=== PATIENT | female | born 2000 | race Caucasian/White ===

== ENCOUNTER 2025-04-05 21:37 | Emergency (ER) | payer MEDICAID, SELFPAY ==
[2025-04-05 21:38] VITALS: BMI 27.4
--- NOTE | 2025-04-05 21:49 | EDNOTE_ITS ---
ED Abdominal Pain RME/HPI General Chief Complaint: Abdominal Pain Stated complaint: LOWER ABD PAIN Time seen by provider: 04/05/25 22:09 Arrival date/time: 04/05/25 21:37 RME / HPI RME / HPI narrative: This section includes all my notes and documentations, including HPI, PE, and ED course. Miguel Russell MD HPI: 24yo female presents to the ED for a chief complaint of pelvic pain. Patient states she was using the restroom when she stated feeling hot and nauseous and felt faint like she was going to pass out. Severe pelvic pain started at this point. Had associated vomiting. No other complaints reported. ROS: All negative except as documented in HPI. Physical Exam: General: Alert and oriented. No acute distress when remaining still. Eyes: Conjunctivae and lids clear. ENT: No nasal congestion. Neck: Supple. Heart: RRR. Lungs: No respiratory distress. Good air movement. No rhonchi, wheezing, rales. Abdomen: Soft. Equivocal pelvic tenderness. Normal bowel sounds. No distension. No rebound or guarding. Back: No CVA tenderness. Skin: Warm and dry. Neuro: Alert and oriented X 3. I reviewed all diagnostic test results. My review of the US transvaginal report is: Right ovary 4.3 cm arterial flow 18 mm cyst. Left ovary 2.9 cm arterial flow small follicles. Mild fluid in the cul-de-sac. Blood and urine tests unremarkable. At this point, diagnoses include ovarian cyst rupture. Treatment here included Tylenol with Codeine, Ibuprofen, and Zofran. Significant improvement. Recommended more outpatient workup. Based on my best medical judgment, made decision no further evaluation or treatment indicated at this time. Patient understands and agrees to the discharge instructions customized and printed, see below. Discharge instructions from Dr. Russell: -- After extensive evaluation, there is no emergency such as appendicitis needing urgent surgery. -- Your sudden severe pain is most likely from an ovarian cyst that ruptured. -- In young females, it is normal to have ovarian cysts (sacs of fluid) that come and go depending on the menstruation. If a cyst ruptures, it can cause severe pain until your body reabsorbs the fluid. Large cyst can cause significant pain as well. -- Apply ice or heat if helpful. Tylenol codeine for severe pain. -- See a private doctor on 04/07/2025. Ask to review all test results and official radiology reports, to make sure you receive all necessary follow-ups and monitoring. Ask for a referral to see a it help desk associate to make sure there is no other serious underlying conditions. -- Seek immediate medical care with worsening, fever, or with any concerns. Miguel Russell MD Related Data Home Medications ?Medication ?Instructions ?Recorded ?Confirmed famotidine 40 mg tablet (Pepcid) 40 mg PO QDAY PRN Ind igestion 07/04/22 07/08/22 clindamycin HCl 300 mg capsule 300 mg PO Q6H 07/08/22 07/08/22 Previous Rx's ?Medication ?Instructions ?Recorded acetaminophen 300 mg-codeine 30 mg 2 tab PO Q8H PRN pa in #20 tabs 04/05/25 tablet ondansetron 4 mg disintegrating 4 mg PO TID PRN nausea and 04/05/25 tablet vomiting 30 days #10 tabs Allergies Allergy/AdvReac Type Severity Reaction Status Date / Time No Known Allergies Allergy Verified 04/05/25 21:38 Review of Systems Review of Systems Systems Reviewed: All systems reviewed, normal except as documented Past Medical History Past Medical History NEUROLOGIC: Negative Neurological Disorders CARDIAC: Positive Cardiac Disorders and Hypertension; Negative Congestive Heart Failure RESPIRATORY: Positive Asthma ( A CHILD); Negative Chronic Obstructive Pulmonary Disease (COPD) GASTROINTESTINAL: Negative Gastrointestinal Disorders, Hepatitis or Colorectal Cancer GENITOURINARY: Negative Genitourinary Disorders, Renal Disease or Prostate Cancer REPRODUCTIVE: Negative Breast Cancer or Testicular Cancer MUSCULOSKELETAL: Negative Musculoskeletal Disorders or Bone Cancer ENDOCRINE: Positive Endocrine Disorders; Negative Diabetes Mellitus Type 1 or Diabetes Mellitus Type 2 HEMATOLOGIC: Positive Blood Disorders and Anemia PSYCHO/SOCIAL: Negative Recreational Drug Use, Depression, Anxiety or Depression OTHER HISTORY: Negative Hospitalization, Autoimmune Disease, Down Syndrome, Developmental Delay, Shingles, Falls, Blood Transfusions, Blood Transfusion Reaction, Anesthesia Reactions, Organ Transplant, Chemotherapy, Radiation Therapy, Hyperbaric Therapy, MRSA, VRSA, Vancomycin-Resistant Enterococci, Human Immunodeficiency Virus (HIV), Chicken Pox, Measles, Mumps, Rubella (English Measles), Pertussis, Clostridium Difficile, Cancer, Breast Cancer, Cervical Cancer, Colorectal Cancer, Lung Cancer, Ovarian Cancer, Prostate Cancer or Testicular Cancer Family History FAMILY HISTORY: Positive Family Psychiatric Problems (BIPOLAR- MOTHER), Family Respiratory Disorders (SISTER- ASTHMA), Family Cancer (AUNT- UTERINE CA) and Family Surgery (MOTHER/ SISTER- ); Negative Family Cardiac Disorders, Family Gastrointestinal Problems or Family Anesthesia Reaction Surgical History SURGICAL: Negative Section or Organ Transplant Social History SMOKING STATUS: Former smoker ED Exam Narrative Physical exam: As noted in HPI. Course Quality Measures none Orders Category Date Time Status US transvaginal Stat Exams 04/05/25 21:50 Completed Bilirubin,Direct Stat Lab 04/05/25 22:04 Completed CBC Stat Lab 04/05/25 22:04 Completed CMP [Comprehensive Metabolic Panel] Stat Lab 04/05/25 22:04 Completed HCG Qualitative,Urine Stat Lab 04/05/25 22:04 Completed Magnesium Stat Lab 04/05/25 22:04 Completed UA, C/S IF [Urinalysis, C/S if Indicated] Stat Lab 04/05/25 22:04 Completed ACETAMINOPHEN w/COD 300-30 [Tylenol w/Cod #3] Med 04/05/25 21:51 Discontinued 2 tab PO X1 ONE Ibuprofen Tab [Motrin Tab] Med 04/05/25 21:51 Discontinued 600 mg PO X1 ONE Ondansetron Odt [Zofran Odt] Med 04/05/25 21:51 Discontinued 4 mg PO X1 ONE Vital Signs Vital signs: Vital Signs Temperature 97.9 F 04/05/25 21:50 Pulse Rate 78 04/05/25 21:50 Respiratory Rate 18 04/05/25 21:50 Blood Pressure 90/60 04/05/25 21:50 Pulse Oximetry (%) 99 04/05/25 21:50 Oxygen Delivery Method Room Air 04/05/25 21:50 Abdominal Pain MDM MDM Narrative MDM Narrative:: Scribe Attestation: 04/05/25 - Gayle Nuñez am scribing for and in the presence of Dr. Russell. 24yo female presents to the ED for a chief complaint of pelvic pain. Patient states she was using the restroom when she stated feeling hot and nauseous and felt faint like she was going to pass out. Severe pelvic pain started at this point. Had associated vomiting. No other complaints reported. Patient data External records reviewed:: [facility] previous records (Per chart review, patient was seen here on 01/12/24 for left flank pain.) Clinical information provided by:: patient Social determinants that could affect healthcare access:: none Patient has the following chronic illnesses:: HTN How is presenting disease/condition affected by chronic disease/condition?: uneffected by Evaluation data The following diagnostics were reviewed and interpreted by me:: lab results and radiology exam(s) Lab and/or radiology exams considered but not ordered:: none Interpretation Summary: I reviewed all diagnostic test results. My review of the US transvaginal report is: Right ovary 4.3 cm arterial flow 18 mm cyst. Left ovary 2.9 cm arterial flow small follicles. Mild fluid in the cul-de-sac. Blood and urine tests unremarkable. Medications / Prescriptions Medications or Prescriptions considered but not ordered:: none Medication administrations:: Medication Administration History Discontinued Medications Acetaminophen/Codeine Phosphate (Acetaminophen W/Cod 300-30 Tablet) 2 tab PO X1 ONE Stop: 04/05/25 21:52 Last Admin: 04/05/25 23:20 Dose: 2 tab Documented By: CVL Ibuprofen (Ibuprofen Tab 600 Mg Tablet) 600 mg PO X1 ONE Stop: 04/05/25 21:52 Last Admin: 04/05/25 23:20 Dose: 600 mg Documented By: CVL Ondansetron HCl (Ondansetron Odt 4 Mg Tabrap) 4 mg PO X1 ONE; Protocol Stop: 04/05/25 21:52 Last Admin: 04/05/25 23:20 Dose: 4 mg Documented By: CVL Tylenol with Codeine, Ibuprofen, Zofran Consultations Consultation(s) initiated? (list below): No Diagnosis Differential diagnosis abdominal pain: acute appendicitis, calculus of kidney, constipation, diverticulitis, endometriosis, gastroenteritis, pancreatitis, small bowel obstruction and other (Ovarian cyst rupture) Most likely diagnosis given after review of the tests above:: Ovarian cyst rupture Admission Indicated Admission indicated?: not indicated Explain why admission is indicated or not indicated:: With significant improvement, there was no indication for admission. Admission Request Was there a request for admission?: No Disposition Plan Disposition Plan: Discharge Discharge Attestation Discharge Attestation: The patient and all family members were given an opportunity to ask questions and understood the discharge instructions. Discharge instructions specifically effects, indications for sooner follow up or return to the emergency department, and the expected course of current diagnosis. Patient condition: Stable Discharge Plan Plan Patient Disposition: HOME (Self Care) Prescriptions/Referrals Prescriptions/Med Rec: New acetaminophen-codeine 300-30 mg tablet 2 tab PO Q8H MDD 6 PRN (Reason: pain) Qty: 20 0RF ondansetron 4 mg tablet,disintegrating 4 mg PO TID PRN (Reason: nausea and vomiting) 30 Days Qty: 10 0RF No Action famotidine [Pepcid] 40 mg Tablet 40 mg PO QDAY PRN (Reason: Indigestion) clindamycin HCl 300 mg Capsule 300 mg PO Q6H Referrals: Ray Torrez MD [Primary Care Provider] - In 1 week Problem List Clinical Impression: Ovarian cyst Patient/Caregiver Discharge Instructions Discharge Activity: activity as tolerated Education Materials: ED Ovarian Cyst Additional Instructions: Discharge instructions from Dr. Russell: -- After extensive evaluation, there is no emergency such as appendicitis needing urgent surgery. -- Your sudden severe pain is most likely from an ovarian cyst that ruptured. -- In young females, it is normal to have ovarian cysts (sacs of fluid) that come and go depending on the menstruation.? If a cyst ruptures, it can cause severe pain until your body reabsorbs the fluid. Large cyst can cause significant pain as well. -- Apply ice or heat if helpful.? Tylenol codeine for severe pain. -- See a private doctor on 04/07/2025.? Ask to review all test results and official radiology reports, to make sure you receive all necessary follow-ups and monitoring. Ask for a referral to see a it help desk associate to make sure there is no other serious underlying conditions. -- Seek immediate medical care with worsening, fever, or with any concerns. Print Language: Yemeni Stand Alone Forms: Lorrie Award Info., Patient Portal Info Letter
[2025-04-05 21:50] VITALS: BP 90/60; PULSE 78; RESP 18; TEMP 36.6; O2SAT 99
--- NOTE | 2025-04-05 21:50 | XR_ITS ---
Examination: Transvaginal ultrasound of the pelvis, complete Technique: Transvaginal sonographic images pelvis performed using borrego scale imaging Exam date and time: April 05, 2025 1012 hours INDICATIONS: Pelvic pain beginning 2 hours ago FINDINGS: Uterus 8.8 cm endometrial stripe 0.9 cm No uterine mass or intrauterine gestation Right ovary 4.3 cm arterial flow 18 mm cyst Left ovary 2.9 cm arterial flow small follicles Mild fluid in the cul-de-sac IMPRESSION: Intrauterine device satisfactory position No uterine mass or intrauterine gestation.
[2025-04-05 22:10] LABS: Collection Type, Urine Clean Catch
[2025-04-05 22:12] LABS: Basophils # (Auto) 0.1 Thou/mm3 (0.0-0.2); Basophils % (Auto) 0 % (0-2.5); Eosinophils # (Auto) 0.1 Thou/mm3 (0.0-0.5); Eosinophils % (Auto) 1 % (0-10); Hematocrit 40.6 % (36.0-46.0); Immature Granulocytes % (Auto) 0 % (0-0); Immature Granulocytes Auto 0.04 Thou/mm3 (0.00-0.00); Lymphocytes # (Auto) 3.9 Thou/mm3 (1.0-4.8); Lymphocytes % (Auto) 30 % (10-50); Mean Corpuscular HGB Conc 34.5 g/dl (31.0-37.0); Mean Corpuscular Hemoglobin 31.3 pg (25.0-35.0); Mean Corpuscular Volume 91 fL (80-100); Monocytes # (Auto) 0.8 Thou/mm3 (0.0-0.8); Monocytes % (Auto) 6 % (0-12); Neutrophils # (Auto) 8.3 Thou/mm3 (1.8-7.7); Neutrophils % (Auto) 63 % (37-80); Nucleated Red Blood Cell % 0 /100 WBC (0); Platelet Count 264 Thou/mm3 (140-440); RDW Standard Deviation 41.6 fL (36.4-46.3); Red Blood Count 4.48 Miln/mm3 (4.00-5.20); White Blood Count 13.2 Thou/mm3 (3.6-11.0)
[2025-04-05 22:16] LABS: HCG Qualitative,Urine Negative
[2025-04-05 22:19] LABS: Bilirubin,Urine Negative (Negative); Blood,Urine Negative (Negative); Clarity,Urine Turbid (Clear/Hazy); Color,Urine Lt-Yellow (Lt Yel-Yel); Culture Indicated,Urine Not Indicated; Glucose, Urine Negative (Negative); Ketones,Urine Negative (Negative); Leukocyte Esterase,Urine Positive (Negative); Nitrite,Urine Negative (Negative); Protein,Urine Negative (Neg - Trace); RBC,Urine 3 /hpf (0-3); Specific Gravity,Urine 1.021 (1.001-1.035); Squamous Epithelial Cell,Urine 12 /hpf (0-5); Urobilinogen,Urine Negative mg/dL (0.0-1.0); WBC,Urine 2 /hpf (0-5)
[2025-04-05 22:32] LABS: Alanine Aminotransferase 79 U/L (10-49); Albumin, Serum 4.6 gm/dL (3.5-5.0); Anion Gap 9 (7-16); Aspartate Amino Transferase 54 U/L (0-34); BUN/Creatinine Ratio 9 Ratio (12-20); Bilirubin,Direct 0.2 mg/dL (0.0-0.3); Bilirubin,Total 0.6 mg/dL (0.3-1.2); Blood Urea Nitrogen 7 mg/dL (9-23); Calcium 9.3 mg/dL (8.3-10.6); Chloride 107 mMol/L (98-107); Creatinine (Component) 0.8 mg/dL (0.6-1.3); Glucose 101 mg/dL (74-106); Osmolality,Calculated 282 (275-295); Potassium 4.4 mMol/L (3.4-5.1); Sodium 143 mMol/L (136-145); Total Protein 6.7 gm/dL (5.7-8.2); eGFR > 60 See Note
[2025-04-05 22:33] LABS: Albumin/Globulin Ratio 2.2 (1.2-2.2); Alkaline Phosphatase 68 U/L (46-116); Calcium (Corrected) 9.3 mg/dL (8.5-10.1); Globulin 2.1 gm/dL (2.3-3.5)
[2025-04-05] MEDS: ACETAMINOPHEN w/COD 300-30 TABLET 2 TAB PO (23:20)
[2025-04-05] MEDS: ONDANSETRON ODT 4 MG TABRAP PO (23:20)
[2025-04-05] MEDS: IBUPROFEN TAB 600 MG TABLET PO (23:20)
== END 2025-04-05 23:50 | disposition home or self-care (01) ==
PROVIDERS: Emergency Provider Emergency Medicine; PCP Family Medicine
DX: N83.201 Unspecified ovarian cyst, right side (principal)
CPT/HCPCS: 36415; 76830; 80053; 81001; 81025; 82248; 83735; 85025; 99284; Q0162; A9270

== ENCOUNTER 2025-07-23 20:00 | Emergency (ER) | payer MEDICAID, SELFPAY ==
[2025-07-23 20:00] VITALS: BMI 27.4
[2025-07-23 20:27] VITALS: BP 133/88; PULSE 80; RESP 16; TEMP 37.2; O2SAT 98
--- NOTE | 2025-07-23 20:44 | PD.EDURI ---
Upper Respiratory Inf. RME/HPI General Chief Complaint: Dental/Oral/Throat Stated Complaint: SORE THROAT Time Seen by Provider: 07/23/25 20:32 Arrival date/time: 07/23/25 20:00 25F with no significant PMH presents to ED with 2 days of sore throat. Limitations: no limitations Related Data Home Medications ?Medication ?Instructions ?Recorded ?Confirmed famotidine 40 mg tablet (Pepcid) 40 mg PO QDAY PRN Indigestion 07/04/22 07/08/22 clindamycin HCl 300 mg capsule 300 mg PO Q6H 07/08/22 07/08/22 Previous Rx's ?Medication ?Instructions ?Recorded acetaminophen 300 mg-codeine 30 mg 2 tab PO Q8H PRN pain #20 tabs 04/05/25 tablet amoxicillin 500 mg tablet 500 mg PO BID 10 days #20 tabs 07/23/25 Allergies Allergy/AdvReac Type Severity Reaction Status Date / Time No Known Allergies Allergy Verified 07/23/25 20:03 Review of Systems Review of Systems Systems Reviewed: All systems reviewed, normal except as documented ENT Ears, Nose, Mouth, and Throat: Reports as per HPI and Reports sore throat Past Medical History Past Medical History NEUROLOGIC: Negative Neurological Disorders CARDIAC: Positive Cardiac Disorders and Hypertension; Negative Congestive Heart Failure RESPIRATORY: Positive Asthma ( A CHILD); Negative Chronic Obstructive Pulmonary Disease (COPD) GASTROINTESTINAL: Negative Gastrointestinal Disorders, Hepatitis or Colorectal Cancer GENITOURINARY: Negative Genitourinary Disorders, Renal Disease or Prostate Cancer REPRODUCTIVE: Negative Breast Cancer or Testicular Cancer MUSCULOSKELETAL: Negative Musculoskeletal Disorders or Bone Cancer ENDOCRINE: Positive Endocrine Disorders; Negative Diabetes Mellitus Type 1 or Diabetes Mellitus Type 2 HEMATOLOGIC: Positive Blood Disorders and Anemia PSYCHO/SOCIAL: Negative Recreational Drug Use, Depression, Anxiety or Depression OTHER HISTORY: Negative Hospitalization, Autoimmune Disease, Down Syndrome, Developmental Delay, Shingles, Falls, Blood Transfusions, Blood Transfusion Reaction, Anesthesia Reactions, Organ Transplant, Chemotherapy, Radiation Therapy, Hyperbaric Therapy, MRSA, VRSA, Vancomycin-Resistant Enterococci, Human Immunodeficiency Virus (HIV), Chicken Pox, Measles, Mumps, Rubella (Setswana Measles), Pertussis, Clostridium Difficile, Cancer, Breast Cancer, Cervical Cancer, Colorectal Cancer, Lung Cancer, Ovarian Cancer, Prostate Cancer or Testicular Cancer Family History FAMILY HISTORY: Positive Family Psychiatric Problems (BIPOLAR- MOTHER), Family Respiratory Disorders (SISTER- ASTHMA), Family Cancer (AUNT- UTERINE CA) and Family Surgery (MOTHER/ SISTER- ); Negative Family Cardiac Disorders, Family Gastrointestinal Problems or Family Anesthesia Reaction Surgical History SURGICAL: Negative Section or Organ Transplant Social History SMOKING STATUS: Never smoker ED Exam General Limitations: Present no limitations General appearance: Present alert and in no apparent distress Head Head exam: Present atraumatic ENT ENT exam: Present mucous membranes moist Expanded ENT Exam Throat exam: Present tonsillar erythema, tonsillomegaly and tonsillar exudate; Absent R peritonsillar mass, L peritonsillar mass or muffled voice Neck Neck exam: Present normal inspection, full ROM and trachea midline Chest Chest inspection: Present normal inspection and symmetric chest wall rise Neurological Exam Neurological exam: Present alert and oriented X3 Psychiatric Psychiatric exam: Present normal affect and normal mood Skin Skin exam: Present warm, dry, intact and normal color Course Quality Measures none Orders Category Date Time Status Strep A Rapid Stat Lab 07/23/25 21:24 Completed Vital Signs Vital signs: Vital Signs Temperature 98.9 F 07/23/25 20:27 Pulse Rate 80 07/23/25 20:27 Respiratory Rate 16 07/23/25 20:27 Blood Pressure 133/88 H 07/23/25 20:27 Pulse Oximetry (%) 98 07/23/25 20:27 Oxygen Delivery Method Room Air 07/23/25 20:27 O2 at 98% on RA and WNLs Upper Respiratory Infection MDM Narrative MDM Narrative:: 25F with no significant PMH presents to ED with 2 days of sore throat. Physical exam reveals red and swollen oropharynx with exudates. Patient is afebrile, calm, and alert. Strep neg. Will treat in case of false neg and clinical presentation. Patient data External records reviewed:: [facility] previous records Clinical information provided by:: patient Social determinants that could affect healthcare access:: none Patient has the following chronic illnesses:: none How is presenting disease/condition affected by chronic disease/condition?: no chronic disease Evaluation data The following diagnostics were reviewed and interpreted by me:: lab results Lab and/or radiology exams considered but not ordered:: ordered Interpretation Summary: above Medications / Prescriptions Medications or Prescriptions considered but not ordered:: not ordered Medication administrations:: n/a Consultations Consultation(s) initiated? (list below): No Diagnosis Upper Respiratory Differential Diagnosis: upper respiratory infection, croup, otitis media, sinusitis, viral infection, bronchitis, influenza and pharyngitis Most likely diagnosis given after review of the tests above:: tonsillitis Admission Indicated Admission indicated?: not indicated Admission Request Was there a request for admission?: No Disposition Plan Disposition Plan: Discharge Discharge Attestation Discharge Attestation: The patient and all family members were given an opportunity to ask questions and understood the discharge instructions. Discharge instructions specifically effects, indications for sooner follow up or return to the emergency department, and the expected course of current diagnosis. Patient condition: Stable Discharge Plan Plan Patient Disposition: HOME (Self Care) Discharge Disposition comment: Stable Prescriptions/Referrals Prescriptions/Med Rec: New amoxicillin 500 mg tablet 500 mg PO BID 10 Days Qty: 20 0RF No Action famotidine [Pepcid] 40 mg Tablet 40 mg PO QDAY PRN (Reason: Indigestion) clindamycin HCl 300 mg Capsule 300 mg PO Q6H acetaminophen-codeine 300-30 mg tablet 2 tab PO Q8H MDD 6 PRN (Reason: pain) Qty: 20 0RF Referrals: No Primary/Family,Physician [Primary Care Provider] - In 1 week Problem List Clinical Impression: Tonsillitis Patient/Caregiver Discharge Instructions Education Materials: Tonsillitis in Adults Additional Instructions: Please follow-up with PCP within 24-48 hours and return immediately if symptoms worsen. Print Language: Occitan Stand Alone Forms: Patient Portal Info Letter LENIN/SERGIO Supervising Physician LENIN/SERGIO Supervising Physician: Dr. Howard
[2025-07-23 22:00] LABS: Strep A Rapid Negative (Negative)
== END 2025-07-23 22:34 | disposition home or self-care (01) ==
PROVIDERS: Physician Assistant; Emergency Provider Emergency Medicine
DX: J03.90 Acute tonsillitis, unspecified (principal)
CPT/HCPCS: 87651; 99283

== ENCOUNTER 2025-07-31 10:09 | Outpatient (AMB) | payer MEDICAID, SELFPAY ==
--- NOTE | 2025-07-31 10:17 | AMB.OBINITIA ---
Vital Signs 07/31/25 10:18 Height 1.63 m Height Method Stated Weight 75.523 kg Weight Measurement Method Standing Scale BMI 28.4 BP 151/87 H Blood Pressure Source Automatic Cuff Blood Pressure Location Left Upper Arm Position Sitting Respiration 16 Pulse 69 Pulse Source Monitor Temp 97.2 F Temp Source Oral Pulse Oximetry (%) 99 Oxygen Delivery Method Room Air Allergies/Home Meds Allergies & Medications Allergies No Known Allergies Allergy (Verified 07/31/25 10:19) Medication Reconciliation famotidine 40 mg tablet (Pepcid) 40 mg PO QDAY PRN Indigestion 07/04/22 [History Confirmed 07/08/22] clindamycin HCl 300 mg capsule 300 mg PO Q6H 07/08/22 [History Confirmed 07/08/22] acetaminophen 300 mg-codeine 30 mg tablet 2 tab PO Q8H PRN pain #20 tabs 04/05/25 [Rx] amoxicillin 500 mg tablet 500 mg PO BID 10 days #20 tabs 07/23/25 [Rx Confirmed 07/31/25] aspirin 81 mg tablet,delayed release (Adult Aspirin Regimen) 81 mg PO QDAY #30 tabs 07/31/25 [Rx] labetalol 200 mg tablet 200 mg PO BID 30 days #60 tabs 07/31/25 [Rx] ondansetron HCl 8 mg tablet 8 mg PO Q8H #30 tabs 07/31/25 [Rx] vitamin-ferrous fumarate 28 mg iron-folic acid 800 mcg tablet ( Vitamins with Minerals) 1 tab PO QDAY #60 tabs 07/31/25 [Rx] Intake Visit Data Collection New Patient or Established: Established Patient (seen at [facility] within 3 years) Reason for Visit:: OBC Seen by Clinical Staff ONLY (RN/MA): No 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 1. Little interest or pleasure in doing things: not at all 2. Feeling down, depressed, or hopeless: not at all Total score: 0 PHQ-9 3. Trouble falling or staying asleep, or sleeping too much: Not at all 4. Feeling tired or having little energy: Not at all 5. Poor appetite or overeating: Not at all 6. Feeling bad about yourself - or that you are a failure or have let yourself or your family down: Not at all 7. Trouble concentrating on things, such as reading the newspaper or watching television: Not at all 8. Moving or speaking so slowly that other people could have noticed? - Or the opposite - being so fidgety or restless that you have been moving around a lot more than usual: not at all 9. Thoughts that you would be better off or of hurting yourself in some way: Not at all Total score: 0 If you checked off any problems, how difficult have these problems made it for you to do your work, take care of things at home, or get along with other people?: not difficult at all Source: Developed by Drs. Gavin Benitez, Tere Campbell, Arpit Kramer and colleagues, with an educational logan from [employer]. Depression screen completed yes Social History Living Situation History Marital Status: Single Lives With: Family Housing: House Tobacco History Smoking Status: Never smoker Second Hand Smoke Exposure: No Alcohol History Alcohol Intake: Never Substance Use History Substance Use: THC Domestic Abuse History Do You Feel Safe at Home: Yes History of Present Illness HPI Narrative The 25-year-old 3 para 2 for OBI. Patient's last period June 08, 2025. This gives a due date March 14, 2026. So patient is 7 weeks 5 days. Complains of increased nausea and vomiting. Feeling tired. Patient is unable to keep food down. She reports that she has a history of having chronic hypertension with her pregnancies. Her last baby she needed to take labetalol. Patient has a history of diabetes with the first but her second baby she did not. Denies social habits. Denies surgeries. And denies any existing chronic illness. Patient denies any bleeding or leaking or cramps. Unplanned but she is happy PRODUCTION CONTROL MANAGER: Past Medical History Past Medical History: No Hx Neurological Disorders, No Hx Breast Cancer, Yes Hx Cardiac Disorders, Yes Hx Hypertension, No Hx Cancer, Yes Hx Blood Disorders, Yes Hx Anemia, No Hx Gastrointestinal Disorders, No Hx Renal Disease, No Hx Diabetes Mellitus Type 1 and No Hx Diabetes Mellitus Type 2 OB Initial Visit OB Flowsheet OB Flowsheet Initial Weight: Not Recorded Date <del>?</del> EGA Weight BP Alb Glu CTX Pres Fundal ht FHR Mov Dilation Station Effacement Hx Notes Visit Note 07/31/25 <del>?</del> 7w 4d 75.523 kg 151/87 absent unknown 8 130 absent 25-year-old 3 para 2 for OBI. Unplanned . Her last. June 08, 2025. This is a due date March 14, 2026. Patient denies any bleeding or cramping. Denies any existence of high blood pressure symptoms. No headache, no epigastric pain. Patient has had history of high blood pressure with her other 2 pregnancies. History of diabetes the first baby. Denies social habits. Denies surgeries. Complains of increased nausea and vomiting. And excessive tiredness Zofran 8 mg p.o. 3 times daily. Discussed comfort measures for nausea and vomiting. Discussed preeclampsia signs and symptoms. I scheduled her NT scan with Dr. Farias. OB panel today with hemoglobin A1c. CMP panel. PT PTT panel and PIH labs. Need 24-hour urine. Consult with Dr. Clifton regarding blood pressure. And patient was started on labetalol 200 twice daily. And low-dose baby aspirin. And I gave her prenatals. Return in 3 weeks OB check Menstrual History Menstrual reliability: definite Flow: normal Menstrual regularity: irregular Monthly: No Age at menarche: 13 On control pills at conception: No OB History : 3 Para: 2 Hx # Pregnancies: 0 Hx Total # of Abortions (Spontaneous & Elective): 0 # of Living Children: 2 Delivery History 1st : Child's name: MAGNO date: 11/29/20 sex: female Delivery type: vaginal 2nd : Child's name: NERI date: 07/10/22 sex: male Delivery type: vaginal History of depression before or after : No Infection History & Risk Evaluation History of STDs: none HIV risk evaluation: low risk Hepatitis B risk evaluation: low risk Patient or partner has history of Genital Herpes: No Varicella/chicken pox status: immunized Genetic Screening & History Genetic Screening/Teratology Counseling - Includes patient, baby's father, or anyone in either family with: 1. Patient's age 35 years or older as of estimated date of delivery: No 2. Thalassemia (Pakistani, Slovak, Mediterranean, or Background); MCV less than 80: No 3. Neural Tube Defect (Meningomyelocele, Spina Bifida, or Anencephaly): No 4. Congenital Heart Defect: No 5. Down Syndrome: No 6. Jose-Sachs (Ashkenazi Denominational, Cajun, Montserratian Weber): No 7. Calvin Disease (Ashkenazi Denominational): No 8. Familial Dysautonomia (Ashkenazi Denominational): No 9. Sickle Cell Disease or Trait (): No 10. Hemophilia or other blood disorders: No 11. Muscular Dystrophy: No 12. Cystic Fibrosis: No 13. Burke's Chorea: No 14. Mental Retardation/Autism: No 15. Other inherited genetic or chromosomal disorder: No 16. Maternal Metabolic Disorder (EG,TYPE 1 Diabetes, PKU): No 17. Patient or baby's father had a child with defects not listed above: No 18. Recurrent loss or a stillbirth: No 19. Medications (including supplements, vitamins, herbs or otc drugs)/illicit/recreational drugs/alcohol since last menstrual period: No 20. Any other: No Infection History 1. Live with someone with TB or exposed to TB: No 2. Rash or viral illness since last menstrual period: No 3. Hepatitis B,C: No Other (see comments) Source: [employer] Review of Systems Review of Systems Systems Reviewed: All systems reviewed, normal except as documented Exam General Limitations: no limitations General Appearance: alert, in no apparent distress, comfortable, cooperative, healthy appearing, well developed and well groomed Head Head exam: atraumatic, normocephalic and normal inspection ENT ENT exam: Present normal exam, normal oropharynx and mucous membranes moist Chest Chest inspection: Present normal inspection and symmetric chest wall rise Resp Respiratory exam: Present normal lung sounds bilaterally Card Cardiovascular exam: Present regular rate, normal rhythm and normal heart sounds Abdominal Abdominal exam: Present soft and normal bowel sounds Extremities Extremities exam: Present normal inspection and full ROM Psych Psychiatric exam: Present normal affect and normal mood Results Objective Laboratory: UA: neg protein, nit/leuk- Office Procedures OBC Clinic LOC & Office Proc's Nursing/Assessment Patient Status: Established Patient OB Clinic Nursing Assessment: Medication Reconciliation, Update PMH in EMR and Vital Signs OB Clinic Coordination of Care: Consent,records obtained, informed consent, Education Simp Pt/Fam, Lab and Imaging orders, Results/Orders obtained and Staff clarify orders Miscellaneous Interventions: Blood/Urine Collection Established Patient Charge Established Patient Point Assignment: 110 Established Patient Point Charge: EP Level 3 (80-115) Results Urine HCG Urine HCG Positive Last Edit by Ilsa Shah MA on 07/31/25 10:29 Assessment & Plan Diagnosis / Problem List (1) Encounter for supervision of high risk in first trimester, antepartum: Status: Acute Plan Start labetalol 200 twice daily. Zofran 8 mg p.o. 3 times daily. Comfort measures for nausea and vomiting. Start on prenatals. And I gave her prescription for low-dose baby aspirin to start. OB panel today with hemoglobin A1c. CMP. PIH labs. And 24-hour urine for protein. Schedule with Dr. Farias for NT scan. Discussed SAB precautions and PIH precautions. Return in 3 weeks for OB check Additional Plan Follow Up: 3 Weeks (obc)
[2025-07-31 10:18] VITALS: BP 151/87; PULSE 69; RESP 16; TEMP 36.2; O2SAT 99; BMI 28.4
== END 2025-07-31 11:02 | disposition home or self-care (01) ==
LOC: HODSOBC 10:09
PROVIDERS: PCP Family Medicine; Referring Provider Family Medicine; Supervising Provider Advanced Practice Midwife; Visit Provider Advanced Practice Midwife
DX: O09.891 Supervision of other high risk pregnancies, first trimester (principal); O10.911 Unspecified pre-existing hypertension complicating pregnancy, first trimester; Z3A.01 Less than 8 weeks gestation of pregnancy; O21.9 Vomiting of pregnancy, unspecified; Z79.899 Other long term (current) drug therapy
CPT/HCPCS: 99213; G0463

== ENCOUNTER 2025-08-20 09:41 | Outpatient (AMB) | payer MEDICAID, SELFPAY ==
[2025-08-20 09:53] VITALS: BP 127/75; PULSE 93; RESP 18; TEMP 36.7; O2SAT 98; BMI 28.7
--- NOTE | 2025-08-20 09:53 | OBCLNT_ITS ---
Vital Signs 08/20/25 09:53 Height 1.63 m Height Method Stated Weight 76.374 kg Weight Measurement Method Standing Scale BMI 28.7 BP 127/75 Blood Pressure Source Automatic Cuff Blood Pressure Location Left Upper Arm Position Sitting Respiration 18 Pulse 93 Pulse Source Monitor Temp 98.0 F Temp Source Temporal Artery Scan Pulse Oximetry (%) 98 Oxygen Delivery Method Room Air Allergies/Home Meds Allergies & Medications Allergies No Known Allergies Allergy (Verified 08/20/25 09:57) Medication Reconciliation labetalol 100 mg tablet 100 mg PO BID #60 tabs 08/20/25 [Rx] Intake Visit Data Collection New Patient or Established: Established Patient (seen at [facility] within 3 years) Reason for Visit:: OBC Seen by Clinical Staff ONLY (RN/MA): No Manager Medical Required: No Do You Feel Safe at Home: Yes Authorities Contacted: N/A PCP or OBGYN visit in last 3 months: Yes Date of Last PCP or OBGYN visit: 07/31/25 Hx Now: Yes Are you currently on any form of Control: No Pain Present Currently: No Pain Scale Used: Galeano-Gutiérrez/Numerical Pain scale:: 0 Smoking Status Smoking Status: Never smoker Immunizations Flu Vaccine in the Last 12 Months: No Flu Vaccine Exclusion Criteria: Refused by Patient Questionnaires Covid-19 Vaccine Questionnaire Has patient been vacinated for Covid-19 Have you been vacinated for Covid-19: No PHQ-9 PHQ-2 Over the last 2 weeks, how often have you been bothered by any of the following problems? 1. Little interest or pleasure in doing things: not at all 2. Feeling down, depressed, or hopeless: not at all Total score: 0 PHQ-9 3. Trouble falling or staying asleep, or sleeping too much: Not at all 4. Feeling tired or having little energy: Not at all 5. Poor appetite or overeating: Not at all 6. Feeling bad about yourself - or that you are a failure or have let yourself or your family down: Not at all 7. Trouble concentrating on things, such as reading the newspaper or watching television: Not at all 8. Moving or speaking so slowly that other people could have noticed? - Or the opposite - being so fidgety or restless that you have been moving around a lot more than usual: not at all 9. Thoughts that you would be better off or of hurting yourself in some way: Not at all Total score: 0 If you checked off any problems, how difficult have these problems made it for you to do your work, take care of things at home, or get along with other people?: not difficult at all Source: Developed by Drs. Gavin Benitez, Tere Campbell, Arpit Kramer and colleagues, with an educational logan from [employer]. Depression screen completed yes Social History Living Situation History Marital Status: Life Partner Lives With: Family Housing: House Tobacco History Smoking Status: Never smoker Second Hand Smoke Exposure: No Alcohol History Alcohol Intake: Never Substance Use History Substance Use: THC Domestic Abuse History Do You Feel Safe at Home: Yes LITIGATION SUPPORT ANALYST: Past Medical History Past Medical History: No Hx Neurological Disorders, No Hx Breast Cancer, Yes Hx Cardiac Disorders, Yes Hx Hypertension, No Hx Cancer, Yes Hx Blood Disorders, Yes Hx Anemia, No Hx Gastrointestinal Disorders, No Hx Renal Disease, No Hx Diabetes Mellitus Type 1 and No Hx Diabetes Mellitus Type 2 Care OB Visit Log OB Flowsheet Initial Weight: Not Recorded Date -?-?-?-?-?-?-?-?-?-?-?-?- EGA Weight BP Alb Glu CTX Pres Fundal ht FHR Mov Dilation Station Effacement Hx Notes Visit Note 07/31/25 -?-?-?-?-?-?-?-?-?-?-?-?- 7w 4d 75.523 kg 151/87 absent unknown 8 130 absent 25-year-old 3 para 2 for OBI. Unplanned . Her last. June 08, 2025. This is a due date March 14, 2026. Patient denies any bleeding or cramping. Denies any existence of high blood pressure symptoms. No headache, no epigastric pain. Patient has had history of high blood pressure with her other 2 pregnancies. History of diabetes the first baby. Denies social habits. Denies surgeries. Complains of increased nausea and vomiting. And excessive tiredness Zofran 8 mg p.o. 3 times daily. Discussed comfort measures for nausea and vomiting. Discussed preeclampsia signs and symptoms. I scheduled her NT scan with Dr. Farias. OB panel today with hemoglobin A1c. CMP panel. PT PTT panel and PIH labs. Need 24-hour urine. Consult with Dr. Clifton regarding blood pressure. And patient was started on labetalol 200 twice daily. And low-dose baby aspirin. And I gave her prenatals. Return in 3 weeks OB check 08/20/25 -?-?-?-?-?-?-?-?-?-?-?-?- 10w 3d 76.374 kg 127/75 absent unknown 10 145 absent No complaints bleeding, no cramping, no leaking. Patient is TSH was 0.102 which is low. Patient denies any history of thyroid disease. Patient states that the nausea is improving. And she has no OB complaints. Patient is states that about a week ago she stopped taking her labetalol low-dose baby aspirin and vitamin. She set that when she took them she felt like her eyes were sensitive to light. That she had a headache that would not go away with Tylenol and she had increasing nausea and vomit. I reviewed history again with patient. Previous history of gestational type reviewed with patient her history again. Patient has a history of GDM with her first . Second her sugars were good. And she also has a previous history of gestational hypertension Maternal- m edicine appointment will be September 11. Today we did NIPT and carrier screen. Consulted with OB. We decreased labetalol to 100 twice daily. I ordered a liver panel and also thyroid cascade. Will make a referral to endocrine for hypothyroid. Patient will continue on GDM diet because of previous history. And walk. Discussed SAB precautions and patient was scheduled with OB in 2 weeks also I asked patient to check her blood pressures at home VANDANA Calculator Estimated Delivery Date Method Current WG Current Estimate 03/15/26 LMP (Certain) 10w 3d Notes Visit Date: 08/20/25 Last Updated by: Divya Bennett CNM O+,abs-,rpr;;nr, rub imm, hbsag-hiv-,HC-, GC/UC-, TSH: 0.102, CMP: ALT:60 Visit Date: 07/31/25 Last Updated by: Divya Bennett CNM 25 yo lmp: 06/08/25. EDC: 03/14/26. CHTN: start labetolol 200 bid Office Procedures OBC Clinic LOC & Office Proc's Nursing/Assessment Patient Status: Established Patient OB Clinic Nursing Assessment: Medication Reconciliation, Update PMH in EMR and Vital Signs OB Clinic Coordination of Care: Complex Care and Chronic Disease 1-5, Education Complex Pt/Fam, Consent,records obtained, informed consent, Results/Orders obtained and Staff clarify orders Special Needs: Heart tones Established Patient Charge Established Patient Point Assignment: 125 Established Patient Point Charge: EP Level 4 (120-155) Assessment & Plan Diagnosis / Problem List (1) Chronic benign essential hypertension, antepartum: Status: Acute (2) Encounter for supervision of high risk in first trimester, antepartum: Status: Acute Plan Thyroid panel today. I did a hepatitis panel with patient because of elevated ALT. Will schedule patient for with lining maker for hypothyroid. I consulted with OB regarding management. Patient to restart her labetalol at 100 mg twice daily and monitor blood pressures at home. She is doing a GDM diet because of previous history of diabetes. And patient has MFM appointment September 11. We also discussed SAB precautions. Additional Plan Follow Up: 2 Weeks (obc, hypothyroid and hypertention)
== END 2025-08-20 11:22 | disposition home or self-care (01) ==
LOC: HODSOBC 09:41
PROVIDERS: Supervising Provider Advanced Practice Midwife; Visit Provider Advanced Practice Midwife
DX: O09.891 Supervision of other high risk pregnancies, first trimester (principal); O10.011 Pre-existing essential hypertension complicating pregnancy, first trimester; O99.281 Endocrine, nutritional and metabolic diseases complicating pregnancy, first trimester; E03.9 Hypothyroidism, unspecified; Z3A.10 10 weeks gestation of pregnancy; Z86.32 Personal history of gestational diabetes
CPT/HCPCS: 99214; G0463

== ENCOUNTER 2025-09-15 10:10 | Outpatient (AMB) | payer MEDICAID, SELFPAY ==
[2025-09-15 10:34] VITALS: BP 116/72; PULSE 78; RESP 18; TEMP 36.2; O2SAT 98; BMI 28.5
--- NOTE | 2025-09-15 10:34 | OBCLNT_ITS ---
Vital Signs 09/15/25 10:34 Height 1.63 m Height Method Stated Weight 75.863 kg Weight Measurement Method Standing Scale BMI 28.5 BP 116/72 Blood Pressure Source Automatic Cuff Blood Pressure Location Left Upper Arm Position Sitting Respiration 18 Pulse 78 Pulse Source Monitor Temp 97.2 F Temp Source Oral Pulse Oximetry (%) 98 Oxygen Delivery Method Room Air Allergies/Home Meds Allergies & Medications Allergies No Known Allergies Allergy (Verified 09/15/25 10:35) Medication Reconciliation labetalol 100 mg tablet 100 mg PO BID #60 tabs 08/20/25 [Rx Confirmed 09/15/25] Immunizations Immunizations Flu Vaccine in the Last 12 Months: No Flu Vaccine Exclusion Criteria: No Exclusion Criteria Care OB Visit Log OB Flowsheet Initial Weight: Not Recorded Date -?-?-?-?-?-?-?-?-?-?-?-?- EGA Weight BP Alb Glu CTX Pres Fundal ht FHR Mov Dilation Station Effacement Hx Notes Visit Note 07/31/25 -?-?-?-?-?-?-?-?-?-?-?-?- 7w 4d 75.523 kg 151/87 absent unknown 8 130 absent 25-year-old 3 para 2 for OBI. Unplanned . Her last. June 08, 2025. This is a due date March 14, 2026. Patient denies any bleeding or cramping. Denies any existence of high blood pressure symptoms. No headache, no epigastric pain. Patient has had history of high blood pressure with her other 2 pregnancies. History of diabetes the first baby. Denies social habits. Denies surgeries. Complains of increased nausea and vomiting. And excessive tiredness Zofran 8 mg p.o. 3 times daily. Discussed comfort measures for nausea and vomiting. Discussed preeclampsia signs and symptoms. I scheduled her NT scan with Dr. Farias. OB panel today with hemoglobin A1c. CMP panel. PT PTT panel and PIH labs. Need 24-hour urine. Consult with Dr. Clifton regarding blood pressure. And patient was started on labetalol 200 twice daily. And low-dose baby aspirin. And I gave her prenatals. Return in 3 weeks OB check 08/20/25 -?-?-?-?-?-?-?-?-?-?-?-?- 10w 3d 76.374 kg 127/75 absent unknown 10 145 absent No complaints ble eding, no cramping, no leaking. Patient is TSH was 0.102 which is low. Patient denies any history of thyroid disease. Patient states that the nausea is improving. And she has no OB complaints. Patient is states that about a week ago she stopped taking her labetalol low-dose baby aspirin and vitamin. She set that when she took them she felt like her eyes were sensitive to light. That she had a headache that would not go away with Tylenol and she had increasing nausea and vomit. I reviewed history again with patient. Previous history of gestational type reviewed with patient her history again. Patient has a history of GDM with her first . Second her sugars were good. And she also has a previous history of gestational hypertension Maternal- medicine appointment will be September 11. Today we did NIPT and carrier screen. Consulted with OB. We decreased labetalol to 100 twice daily. I ordered a liver panel and also thyroid cascade. Will make a referral to endocrine for hypothyroid. Patient will continue on GDM diet because of previous history. And walk. Discussed SAB precautions and patient was scheduled with OB in 2 weeks also I asked patient to check her blood pressures at home 09/15/25 -?-?-?-?-?-?-?-?-?-?-?-?- 14w 1d 75.863 kg 116/72 absent unknown 162 absent - She reports that her labetalol was decreased from 200 mg to 100 mg BID at her last appointment due to hypotension. - [facility]. - She has not started the reduced dose medication because she wanted to know about her liver and thyroid results before taking it. - She checks her blood pressures at [facility] and reports good readings since her l ast visit. - Blood pressure has been good at all recent doctor visits. - Patient reports the previous medicatio n was making her really sick. - She experienced an ultrasound on without issues. - Patient reports improvement in nausea and vomiting compared to earlier in . - She currently experiences really bad i ndigestion with all foods. - Patient had initial labs done approxim ately 3 weeks ago showing elevated liver enzymes and thyroid abnormalities. - She is awaiting a thyroid specialist r eferral and consultation call. - Patient has a history of receiving car e from a different provider (Divya) who delivered her previous 2 babies at [facility]. - Hold labetalol 100 mg BID given current good blood pressure control - Repeat liver function panel in early (2 months from initial July testing) - If liver enzymes continue to rise, obt ain hepatology consultation - Order gallbladder ultrasound to evalua te for gallstones - Order comprehensive metabolic profile (CMP) - Add one-hour glucose tolerance test - Provide juuw-vld-opnlkiq digestive enz yme medication for indigestion - Follow up in 4 weeks - Return to previous provider Divya after next appointment and review of results VANDANA Calculator Estimated Delivery Date Method Current WG Current Estimate 03/15/26 LMP (Certain) 18w 3d Notes Visit Date: 09/15/25 Last Updated by: Moshe Menendez MD - Genetics test results: All negative - Cystic fibrosis screening: Negative - sex determination: Male - Liver enzymes (initial panel, beginning of July): - AST and ALT: One elevated (specific value not provided) - Previous baseline (approximately one year ago): AST or ALT 52 - heart rate: 162 bpm Visit Date: 08/20/25 Last Updated by: Divya Bennett CNM O+,abs-,rpr;;nr, rub imm, hbsag-hiv-,HC-, GC/UC-, TSH: 0.102, CMP: ALT:60 Visit Date: 07/31/25 Last Updated by: Divya Bennett CNM 25 yo lmp: 06/08/25. EDC: 03/14/26. CHTN: start labetolol 200 bid Office Procedures OBC Clinic LOC & Office Proc's Nursing/Assessment Patient Status: Established Patient OB Clinic Nursing Assessment: Medication Reconciliation, Update PMH in EMR and Vital Signs OB Clinic Coordination of Care: Consent,records obtained, informed consent, Education Simp Pt/Fam, Lab and Imaging orders, Results/Orders obtained and Staff clarify orders Special Needs: Heart tones Established Patient Charge Established Patient Point Assignment: 110 Established Patient Point Charge: EP Level 3 (80-115) Assessment & Plan Diagnosis / Problem List (1) Right upper quadrant abdominal pain: Status: Acute Plan Problem List - Chronic hypertension - Elevated liver enzymes - Thyroid disorder - Indigestion Assessment This is a 14-week 1-day 2 patient with chronic hypertension currently well-controlled off antihypertensive medication, with elevated liver enzymes (AST/ALT) of unclear etiology that has been persistently elevated since baseline testing, and thyroid abnormalities requiring endocrine consultation. The patient reports severe indigestion with all foods, raising concern for possible gallbladder pathology. Blood pressure control has improved significantly from baseline of 151/87, with recent readings being normal, allowing for discontinuation of labetalol which was previously reduced from 200mg to 100mg BID due to hypotension. Genetic screening including cystic fibrosis testing returned negative results with male fetus confirmed. Plan - Hold labetalol 100 mg BID given current good blood pressure control - Repeat liver function panel in early September (2 months from initial July testing) - If liver enzymes continue to rise, obtain hepatology consultation - Order gallbladder ultrasound to evaluate for gallstones - Order comprehensive metabolic profile (CMP) - Add one-hour glucose tolerance test - Provide [id number]-[id number] digestive enzyme medication for indigestion - Follow up in 4 weeks - Return to previous provider Divya after next appointment and review of results
== END 2025-09-15 10:57 | disposition home or self-care (01) ==
LOC: HODSOBC 10:10
PROVIDERS: Supervising Provider Obstetrics & Gynecology; Visit Provider Obstetrics & Gynecology
DX: O09.892 Supervision of other high risk pregnancies, second trimester (principal); O10.912 Unspecified pre-existing hypertension complicating pregnancy, second trimester; R10.11 Right upper quadrant pain; O99.891 Other specified diseases and conditions complicating pregnancy; R74.8 Abnormal levels of other serum enzymes; O99.282 Endocrine, nutritional and metabolic diseases complicating pregnancy, second trimester; E07.9 Disorder of thyroid, unspecified; Z3A.14 14 weeks gestation of pregnancy; Z79.899 Other long term (current) drug therapy
CPT/HCPCS: 99213; G0463

== ENCOUNTER → 2025-09-22 | Outpatient (CLI) | payer MEDICAID, SELFPAY ==
--- NOTE | 2025-09-22 09:38 | XR_ITS ---
Examination: Abdomen sonogram, Limited Date and time of exam: September 22, 2025, 0955 hours INDICATIONS: Right upper abdominal pain beginning several weeks ago Technique: Real-time borrego scale transabdominal sonographic images of the upper abdomen obtained. Findings: Normal gallbladder Normal common bile duct 0.3 cm Pancreatic tail 3.3 cm Liver 14.6 cm fatty infiltration no focal liver lesions Normal hepatopetal portal venous flow Patent IVC IMPRESSION: Normal gallbladder Normal common bile duct
== END | disposition home or self-care (01) ==
PROVIDERS: Referring Provider Obstetrics & Gynecology; Visit Provider Obstetrics & Gynecology
DX: R10.11 Right upper quadrant pain (principal)
CPT/HCPCS: 76705

== ENCOUNTER 2025-10-19 08:12 | Outpatient (AMB) | payer MEDICAID, SELFPAY ==
[2025-10-19 08:27] VITALS: BP 103/68; PULSE 77; RESP 14; TEMP 36.4; O2SAT 98; BMI 29.2
--- NOTE | 2025-10-19 08:27 | OBCLNT_ITS ---
Vital Signs 10/19/25 08:27 Height 1.63 m Height Method Stated Weight 77.621 kg Weight Measurement Method Standing Scale BMI 29.2 BP 103/68 Blood Pressure Source Automatic Cuff Blood Pressure Location Left Upper Arm Position Sitting Respiration 14 Pulse 77 Pulse Source Monitor Temp 97.6 F Temp Source Oral Pulse Oximetry (%) 98 Oxygen Delivery Method Room Air Allergies/Home Meds Allergies & Medications Allergies No Known Allergies Allergy (Verified 10/19/25 08:28) Immunizations Immunizations Flu Vaccine in the Last 12 Months: No Flu Vaccine Exclusion Criteria: Refused by Patient Care OB Visit Log OB Flowsheet Initial Weight: Not Recorded Date -?-?-?-?-?-?-?-?-?-?-?-?- EGA Weight BP Alb Glu CTX Pres Fundal ht FHR Mov Dilation Station Effacement Hx Notes Visit Note 07/31/25 -?-?-?-?-?-?-?-?-?-?-?-?- 7w 4d 75.523 kg 151/87 absent unknown 8 130 absent 25-year-old 3 para 2 for OBI. Unplanned . Her last. June 08, 2025. This is a due date March 14, 2026. Patient denies any bleeding or cramping. Denies any existence of high blood pressure symptoms. No headache, no epigastric pain. Patient has had history of high blood pressure with her other 2 pregnancies. History of diabetes the first baby. Denies social habits. Denies surgeries. Complains of increased nausea and vomiting. And excessive tiredness Zofran 8 mg p.o. 3 times daily. Discussed comfort measures for nausea and vomiting. Discussed preeclampsia signs and symptoms. I scheduled her NT scan with Dr. Farias. OB panel today with hemoglobin A1c. CMP panel. PT PTT panel and PIH labs. Need 24-hour urine. Consult with Dr. Clifton regarding blood pressure. And patient was started on labetalol 200 twice daily. And low-dose baby aspirin. And I gave her prenatals. Return in 3 weeks OB check 08/20/25 -?-?-?-?-?-?-?-?-?-?-?-?- 10w 3d 76.374 kg 127/75 absent unknown 10 145 absent No complaints bleeding, no cramping, no leaking. Patient is TSH was 0.102 which is low. Patient denies any history of thyroid disease. Patient states that the nausea is improving. And she has no OB complaints. Patient is states that about a week ago she stopped taking her labetalol low-dose baby aspirin and vitamin. She set that when she took them she felt like her eyes were sensitive to light. That she had a headache that would not go away with Tylenol and she had increasing nausea and vomit. I reviewed history again with patient. Previous history of gestational type reviewed with patient her history again. Patient has a history of GDM with her first . Second her sugars were good. And she also has a previous history of gestational hypertension Maternal- m edicine appointment will be September 11. Today we did NIPT and carrier screen. Consulted with OB. We decreased labetalol to 100 twice daily. I ordered a liver panel and also thyroid cascade. Will make a referral to endocrine for hypothyroid. Patient will continue on GDM diet because of previous history. And walk. Discussed SAB precautions and patient was scheduled with OB in 2 weeks also I asked patient to check her blood pressures at home 09/15/25 -?-?-?-?-?-?-?-?-?-?-?-?- 14w 1d 75.863 kg 116/72 absent unknown 162 absent - She reports that her labetalol was decreased from 200 mg to 100 mg BID at her last appointment due to hypotension. - [facility] mmHg. - She has not started the reduced dose medication because she wanted to know about her liver and thyroid results before taking it. - She checks her blood pressures at [facility] and reports good readings since her last visit. - Blood pressure has been good at all recent doctor visits. - Patient reports the previous medicatio n was making her really sick. - She experienced an ultrasound on without issues. - Patient reports improvement in nausea and vomiting compared to earlier in . - She currently experiences really bad i ndigestion with all foods. - Patient had initial labs done approxim ately 3 weeks ago showing elevated liver enzymes and thyroid abnormalities. - She is awaiting a thyroid specialist r susan and consultation call. - Patient has a history of receiving car e from a different provider (Divya) who delivered her previous 2 babies at [facility]. - Hold labetalol 100 mg BID given current good blood pressure control - Repeat liver function panel in early D ecember (2 months from initial July testing) - If liver enzymes continue to rise, obt ain hepatology consultation - Order gallbladder ultrasound to evalua te for gallstones - Order comprehensive metabolic profile (CMP) - Add one-hour glucose tolerance test - Provide htzv-fug-hktwkev digestive enz yme medication for indigestion - Follow up in 4 weeks - Return to previous provider Divya after next appointment and review of results 10/19/25 -?-?-?-?-?-?-?-?-?-?-?-?- 19w 0d 77.621 kg 103/68 absent unknown 155 active - She previously reported upper abdominal pain on her right side during her last visit. - She reports possibly feeling some feta l movements described as little flickers but notes they are not consistent. - She has a history of gestational diabe valerio in her first but not in her second . - During her first with gest ational diabetes, she managed it with diet alone without requiring medications. - She denies making any significant changes to her eating habits cu rrently. - Perform 7-day home glucose monitoring with glucometer in lieu of 3-hour glucose tolerance test for gestational diabetes screening - Glucometer and testing supplies to be sent to [facility] pharmacy - Patient to record glucose values and b ring results to next visit - Continue current dietary habits withou t modifications until baseline glucose values are established - Follow up with scheduled ultrasound in October VANDANA Calculator Estimated Delivery Date Method Current WG Current Estimate 03/15/26 LMP (Certain) 19w 0d Notes Visit Date: 10/19/25 Last Updated by: Moshe Menendez MD - Gallbladder ultrasound: Negative, no stones or obstruction - Liver function tests: Normal (13 and zero mentioned) - Kidney function tests: Normal - Glucose (fasting): 149 mg/dL (elevated) - AFP test: Negative for AUDITING MANAGER defects - Ultrasound with Dr. Alexander: Performed in August - heart rate: 155 bpm (normal) Visit Date: 09/15/25 Last Updated by: Moshe Menendez MD - Genetics test results: All negative - Cystic fibrosis screening: Negative - sex determination: Male - Liver enzymes (initial panel, beginning of July): - AST and ALT: One elevated (specific value not provided) - Previous baseline (approximately one year ago): AST or ALT 52 - heart rate: 162 bpm Visit Date: 08/20/25 Last Updated by: Divya Bennett CNM O+,abs-,rpr;;nr, rub imm, hbsag-hiv-,HC-, GC/UC-, TSH: 0.102, CMP: ALT:60 Visit Date: 07/31/25 Last Updated by: Divya Bennett CNM 25 yo lmp: 06/08/25. EDC: 03/14/26. CHTN: start labetolol 200 bid Office Procedures OBC Clinic LOC & Office Proc's Nursing/Assessment Patient Status: Established Patient OB Clinic Nursing Assessment: Medication Reconciliation, Update PMH in EMR and Vital Signs OB Clinic Coordination of Care: Complex Care and Chronic Disease 1-5, Consent,records obtained, informed consent, Education Simp Pt/Fam, 1 Ins Authorization, Lab and Imaging orders, Results/Orders obtained and Staff clarify orders Special Needs: Heart tones Established Patient Charge Established Patient Point Assignment: 150 Established Patient Point Charge: EP Level 4 (120-155) Assessment & Plan Diagnosis / Problem List (1) Right upper quadrant abdominal pain: Status: Acute (2) Hypothyroid in , antepartum: Status: Acute (3) Chronic benign essential hypertension, antepartum: Status: Acute Plan Problem List - Gestational diabetes mellitus - Chronic hypertension - Elevated liver enzymes Assessment 19-week 2 with elevated glucose screening test at 149 mg/dL requiring further evaluation for gestational diabetes, with history of gestational diabetes in first managed with diet alone. Gallbladder ultrasound negative for stones or obstruction, resolving previous upper abdominal pain. Liver function tests have normalized from previously elevated levels. AFP screening negative for neural tube defects. heart rate 155 bpm, normal. Patient reports possible early movement but inconsistent. Plan - Perform 7-day home glucose monitoring with glucometer in lieu of 3-hour glucose tolerance test for gestational diabetes screening - Glucometer and testing supplies to be sent to [facility] pharmacy - Patient to record glucose values and bring results to next visit - Continue current dietary habits without modifications until baseline glucose values are established - Follow up with scheduled ultrasound in October 22. Progress Reviewed gestational age (19 weeks 7 days), growth, and heart rate (155 bpm, normal). Planned frequent visits (every 2 weeks until 36 weeks, then weekly). 2. Instructed patient to monitor movements and report decreases immediately. 3. Testing Counseled on routine third-trimester labs per guidelines. Discussed potential need for ultrasound or monitoring based on risk factors. 4. Preeclampsia Precaution Educated on preeclampsia signs: severe headache, vision changes, right upper quadrant pain, sudden swelling. Advised urgent reporting of symptoms and discussed blood pressure monitoring if high risk. 5. Labor Precautions Reviewed labor signs: regular contractions, pelvic pressure, back pain, bleeding, or fluid leakage. Instructed to seek immediate care for these symptoms. 6. Lifestyle and Delivery Preparation Reinforced vitamins, nutrition, and safe activity. Discussed plan, pain management, and . Advised on labor preparation (e.g., hospital bag) and expectations. 7. Psychosocial Support Assessed emotional well-being and offered resources for mental health or parenting support.
== END 2025-10-19 09:02 | disposition home or self-care (01) ==
LOC: HODSOBC 08:12
PROVIDERS: Supervising Provider Obstetrics & Gynecology; Visit Provider Obstetrics & Gynecology
DX: O09.892 Supervision of other high risk pregnancies, second trimester (principal); O99.282 Endocrine, nutritional and metabolic diseases complicating pregnancy, second trimester; E03.9 Hypothyroidism, unspecified; O10.012 Pre-existing essential hypertension complicating pregnancy, second trimester; O99.810 Abnormal glucose complicating pregnancy; O99.891 Other specified diseases and conditions complicating pregnancy; R10.11 Right upper quadrant pain; R74.8 Abnormal levels of other serum enzymes; Z3A.19 19 weeks gestation of pregnancy; Z86.32 Personal history of gestational diabetes; Z28.21 Immunization not carried out because of patient refusal
CPT/HCPCS: 99214; G0463